=== PATIENT | female | born 1965 | race Two or more races ===

== ENCOUNTER 2020-08-19 13:41 | Observation (INO) | payer MEDICAID ==
[~2020-08-19] VITALS: Ht 157.5 cm; Wt 126.0 kg
[2020-08-19 14:06] LABS: BASO # 0.1 x10^3/uL (0.0-0.2); BASO % 1 % (0-3); EOS # 0.2 x10^3/uL (0.0-0.7); EOS % 2 % (0-3); HEMATOCRIT 35.6 % (36.0-47.0); HEMOGLOBIN 11.8 g/dL (12.0-15.5); LYMPH # 2.8 x10^3/uL (1.0-4.8); LYMPH % 27 % (24-48); MEAN CORPUSCULAR HEMOGLOBIN 26 pg (25-35); MEAN CORPUSCULAR HGB CONC 33 g/dL (31-37); MEAN CORPUSCULAR VOLUME 80 fL (79-100); MONO # 0.5 x10^3/uL (0.0-1.1); MONO % 5 % (0-9); NEUT # 6.6 x10^3/uL (1.8-7.7); NEUT % 65 % (31-73); PLATELET COUNT 217 x10^3/uL (140-400); RED BLOOD COUNT 4.47 x10^6/uL (3.50-5.40); RED CELL DISTRIBUTION WIDTH 18.6 % (11.5-14.5); WHITE BLOOD COUNT 10.2 x10^3/uL (4.0-11.0)
[2020-08-19 14:15] LABS: CALCIUM 9.5 mg/dL (8.5-10.1); CREATININE 0.9 mg/dL (0.6-1.0); POTASSIUM 3.6 mmol/L (3.5-5.1)
[2020-08-19 14:20] LABS: ALBUMIN 3.6 g/dL (3.4-5.0); MAGNESIUM 1.7 mg/dL (1.8-2.4); TOTAL BILIRUBIN 0.3 mg/dL (0.2-1.0); TOTAL PROTEIN 7.2 g/dL (6.4-8.2)
--- NOTE | 2020-08-19 14:23 | RAD ---
INDICATION: Reason: chest pain / Spl. Instructions: / History: COMPARISON: None. FINDINGS: Single view of chest obtained. Enlarged cardiomediastinal silhouette. Degenerative changes of the spine. No definite focal airspace consolidation or pulmonary edema. IMPRESSION: * No focal airspace consolidation or edema. Electronically signed by: Melvin Carrillo MD (08/19/2020 2:21 PM) [id number]
--- NOTE | 2020-08-19 14:28 | PHYS DOC ---
Past Medical History Past Medical History: Diabetes-Type II, Hypertension Past Surgical History: Additional Past Surgical Histo: UTERINE POLYPS Smoking Status: Never Smoker Alcohol Use: None General Adult EDM: Chief Complaint: CHEST PAIN HPI: HPI: Patient is a 55 year old female who was brought here by EMS from home due to substernal chest pain started on Sunday then went away, chest pain returned today. Patient went to have Covid test couple days ago and it came back negative yesterday. Patient has history of diabetic and hypertension. Patient had no history of coronary artery disease or blood clot disorder. Patient denies any recent travel or operation. Patient is not sure if she been exposed to anybody who tested positive for COVID-19. Patient said EMS gave her nitrog lycerin 2 doses and aspirin on route, patient feel much better upon arrival to ER. Review of Systems: Review of Systems: Constitutional: Denies fever or chills. [] Eyes: Denies change in visual acuity. [] HENT: positive for nasal congestion , no sore throat. [] Respiratory: Denies cough or shortness of breath. [] Cardiovascular: Positive for chest pain. GI: Denies abdominal pain, nausea, vomiting, bloody stools or diarrhea. [] : Denies dysuria. [] Musculoskeletal: Denies back pain or joint pain. [] Integument: Denies rash. [] Neurologic: Denies headache, focal weakness or sensory changes. [] Endocrine: Denies polyuria or polydipsia. [] Lymphatic: Denies swollen glands. [] Psychiatric: Denies depression or anxiety. [] Heart Score: HEART Score for Chest Pain: HEART Score for Chest Pain Response (Comments) Value History Moderately Suspicious 1 ECG Normal 0 Age >45 - < 65 1 Risk Factors >3 Risk Factors or Hx CAD 2 Troponin < Normal Limit 0 Total 4 Risk Factors: Risk Factors: DM, Current or recent (<one month) smoker, HTN, HLP, family history of CAD, obesity. Risk Scores: Score 0 - 3: 2.5% MACE over next 6 weeks - Discharge Home Score 4 - 6: 20.3% MACE over next 6 weeks - Admit for Clinical Observation Score 7 - 10: 72.7% MACE over next 6 weeks - Early Invasive Strategies Allergies: Allergies: Allergies Coded Allergies Type Severity Reaction Last Updated Verified No Known Drug Allergies 08/19/20 No Physical Exam: PE: Constitutional: Well developed, well nourished, no acute distress, non-toxic appearance. [] HENT: Normocephalic, atraumatic, bilateral external ears normal, oropharynx moist, no oral exudates, nose normal. [] Eyes: PERRLA, EOMI, conjunctiva normal, no discharge. [] Neck: Normal range of motion, no tenderness, supple, no stridor. [] Cardiovascular:Heart rate regular rhythm, no murmur [] Lungs & Thorax: Bilateral breath sounds clear to auscultation [] Abdomen: Bowel sounds normal, soft, no tenderness, no masses, no pulsatile masses. [] Skin: Warm, dry, no erythema, no rash. [] Back: No tenderness, no CVA tenderness. [] Extremities: No tenderness, no cyanosis, no clubbing, ROM intact, no edema. [] Neurologic: Alert and oriented X 3, normal motor function, normal sensory function, no focal deficits noted. [] Psychologic: Affect normal, judgement normal, mood normal. [] Current Patient Data: Labs: Laboratory Tests Test 08/19/20 13:55 White Blood Count 10.2 x10^3/uL (4.0-11.0) Red Blood Count 4.47 x10^6/uL (3.50-5.40) Hemoglobin 11.8 g/dL (12.0-15.5) L Hematocrit 35.6 % (36.0-47.0) L Mean Corpuscular Volume 80 fL (79-100) Mean Corpuscular Hemoglobin 26 pg (25-35) Mean Corpuscular Hemoglobin Concent 33 g/dL (31-37) Red Cell Distribution Width 18.6 % (11.5-14.5) H Platelet Count 217 x10^3/uL (140-400) Neutrophils (%) (Auto) 65 % (31-73) Lymphocytes (%) (Auto) 27 % (24-48) Monocytes (%) (Auto) 5 % (0-9) Eosinophils (%) (Auto) 2 % (0-3) Basophils (%) (Auto) 1 % (0-3) Neutrophils # (Auto) 6.6 x10^3/uL (1.8-7.7) Lymphocytes # (Auto) 2.8 x10^3/uL (1.0-4.8) Monocytes # (Auto) 0.5 x10^3/uL (0.0-1.1) Eosinophils # (Auto) 0.2 x10^3/uL (0.0-0.7) Basophils # (Auto) 0.1 x10^3/uL (0.0-0.2) Sodium Level 143 mmol/L (136-145) Potassium Level 3.6 mmol/L (3.5-5.1) Chloride Level 106 mmol/L (98-107) Carbon Dioxide Level 27 mmol/L (21-32) Anion Gap 10 (6-14) Blood Urea Nitrogen 12 mg/dL (7-20) Creatinine 0.9 mg/dL (0.6-1.0) Estimated GFR (Cockcroft-Gault) 65.0 BUN/Creatinine Ratio 13 (6-20) Glucose Level 97 mg/dL (70-99) Calcium Level 9.5 mg/dL (8.5-10.1) Magnesium Level 1.7 mg/dL (1.8-2.4) L Total Bilirubin 0.3 mg/dL (0.2-1.0) Aspartate Amino Transferase (AST) 11 U/L (15-37) L Alanine Aminotransferase (ALT) 23 U/L (14-59) Alkaline Phosphatase 105 U/L (46-116) Troponin I Quantitative < 0.017 ng/mL (0.000-0.055) EX-Eab-K-Type Natriuretic Peptide 22 pg/mL (0-124) Total Protein 7.2 g/dL (6.4-8.2) Albumin 3.6 g/dL (3.4-5.0) Albumin/Globulin Ratio 1.0 (1.0-1.7) Lipase 101 U/L (73-393) Laboratory Tests 08/19/20 13:55 Laboratory Tests 08/19/20 13:55 Vital Signs: Vital Signs Date Time Temp Pulse Resp B/P (MAP) Pulse Ox O2 Delivery O2 Flow Rate FiO2 08/19/20 13:44 97.9 71 18 139/63 (88) 99 Room Air 97.9 EKG: EKG: EKG was done at 1348, heart rate of 67 bpm, sinus rhythm, no ST segment elevation. Radiology/Procedures: Radiology/Procedures: [][facility] [address] [place] [address] IMAGING REPORT Signed PATIENT: SUYAPA TOMAS ACCOUNT: [id number] : 1965 LOCATION: ER AGE: 55 SEX: F EXAM STATUS: PRE ER ORD. PHYSICIAN: ALNCE MOBLEY DO REASON: chest pain PROCEDURE: PORTABLE CHEST 1V INDICATION: Reason: chest pain / Spl. Instructions: / History: COMPARISON: None. FINDINGS: Single view of chest obtained. Enlarged cardiomediastinal silhouette. Degenerative changes of the spine. No definite focal airspace consolidation or pulmonary edema. IMPRESSION: * No focal airspace consolidation or edema. Electronically signed by: Melvin Neff MD (08/19/2020 2:21 PM) [id number] DICTATED and SIGNED BY: MELVIN ENFF MD DATE: 08/19/20 [id number] Course & Med Decision Making: Course & Med Decision Making Pertinent Labs and Imaging studies reviewed. (See chart for details) Patient is a 55-year-old female who presented to ER for evaluation of substernal chest pain, EKG and lab work come back normal so far. Due to her risk factors patient will be admitted for observation. Dragon Disclaimer: Dragjuan Disclaimer: This electronic medical record was generated, in whole or in part, using a voice recognition dictation system. Departure Departure Impression: Primary Impression: Chest pain Disposition: ADMITTED INPT THIS HOSP Admitting Physician: NADEEN (Dr. Connell) Condition: STABLE LANCE MOBLEY DO Aug 19, 2020 14:28
[2020-08-19] MEDS ORDERED: MAGNESIUM SULFATE 2GM 50 ML IV ONE (16:00)
[2020-08-19] MEDS ORDERED: ZOLPIDEM 5 MG TABLET. PO PRN (16:00)
[2020-08-19] MEDS ORDERED: POTASSIUM BICARB 20 MEQ EFFERVESCENT TABLET. PO ONE (16:00)
[2020-08-19] MEDS ORDERED: MORPHINE SULFATE 2 MG/ML VIAL. IV PRN (16:00)
[2020-08-19] MEDS ORDERED: ENOXAPARIN 40 MG/0.4 ML SYRINGE. SQ SCH (16:00)
[2020-08-19] MEDS ORDERED: ONDANSETRON PF 4 MG/2 ML VIAL. IVP PRN (16:00)
--- NOTE | 2020-08-19 16:01 | PDOC1 ---
History and Physical Date of Admission Date of Admission DATE: 08/19/20 TIME: 15:52 Identification/Chief Complaint Chief Complaint Chest pain Source Source: Patient History of Present Illness History of Present Illness Ms Mathew is a 55 year old female w/ PMHx HTN, DM2 who was brought here by EMS from home due to substernal chest pain that did not radiate. Was sharp, associated with shortness of breath, lasted more than 15 minutes. 02/05. EMS gave her nitroglycerin 2 doses and aspirin on route, patient feel much better upon arrival to ER. Initially this pain started on Sunday then went away with associated SOB, chest pain returned today. Patient went to have Covid test on 08/16/20 and received negative results 08/18/20. Patient had no history of coronary artery disease or blood clot disorder. Patient denies any recent travel or operation. Patient is not sure if she been exposed to anybody who tested positive for COVID-19. 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 She has never smoked. EKG was done at 1348, heart rate of 67 bpm, sinus rhythm, no ST segment elevation. Chest radiograph with no acute abnormalities. Labs with WBC 10.2, Hb 11.8, platelets 207, NA 143, K3.6, BUN 12, CR 0.9, glucose 97, magnesium 1.7, troponin 0 Admitted for further overnight observation. Past Medical History Cardiovascular: HTN, Hyperlipidemia Endocrine: Diabetes Past Surgical History Past Surgical History: Hysterectomy Family History Family History: High Cholestrol, Hypertension Social History Smoke: No ALCOHOL: none Drugs: None Current Problem List Problem List Problems Medical Problems: (1) Chest pain Status: Acute Allergies Allergies: Coded Allergies: No Known Drug Allergies (Unverified , 08/19/20) ROS General: YES: Fatigue, Malaise; No: Chills, Night Sweats, Appetite, Other PSYCHOLOGICAL ROS: No: Anxiety, Behavioral Disorder, Concentration difficultie, Decreased libido, Depression, Disorientation, Hallucinations, Hostility, Irritablity, Memory difficulties, Mood Swings, Obsessive thoughts, Physical abuse, Sexual abuse, Sleep disturbances, Suicidal ideation, Other Eyes: No Blurry vision, No Decreased vision, No Double vision, No Dry eyes, No Excessive tearing, No Eye Pain, No Itchy Eyes, No Loss of vision, No P hotophobia, No Scotomata, No Uses contacts, No Uses glasses, No Other HEENT: No: Heacaches, Visual Changes, Hearing change, Nasal congestion, Nasal discharge, Oral lesions, Sinus pain, Sore Throat, Epistaxis, Sneezing, Snoring, Tinnitus, Vertigo, Vocal changes, Other ALLERGY AND IMMUNOLOGY: No: Hives, Insect Bite Sensitivity, Itchy/Watery Eyes, Nasal Congestion, Post Nasal Drip, Seasonal Allergies, Other Hematological and Lymphatic: No: Bleeding Problems, Blood Clots, Blood Transfusions, Brusing, Night Sweats, Pallor, Swollen Lymph Nodes, Other ENDOCRINE: No: Breast Changes, Galactorrhea, Hair Pattern Changes, Hot Flashes, Malaise/lethargy, Mood Swings, Palpitations, Polydipsia/polyuria, Skin Changes, Temperature Intolerance, Unexpected Weight Changes, Other Breast: No New/Changing Breast Lumps, No Nipple changes, No Nipple discharge, No Other Respiratory: No: Cough, Hemoptysis, Orthopnea, Pleuritic Pain, Shortness of breath, SOB with excertion, Sputum Changes, Stridor, Tachypnea, Wheezing, Other Cardiovascular: No Chest Pain, No Palpitations, No Orthopnea, No Paroxysmal Noc. Dyspnea, No Edema, No Lt Headedness, No Other Gastrointestinal: No Nausea, No Vomiting, No Abdominal Pain, No Diarrhea, No Constipation, No Melena, No Hematochezia, No Other Genitourinary: No Dysuria, No Frequency, No Incontinence, No Hematuria, No Retention, No Discharge, No Urgency, No Pain, No Flank Pain, No Other, No , No , No , No , No , No , No Musculoskeletal: No Gait Disturbance, No Joint Pain, No Joint Stiffness, No Joint Swelling, No Muscle Pain, No Muscular Weakness, No Pain In:, No Swelling In:, No Other Neurological: No Behavorial Changes, No Bowel/Bladder ControlChng, No Confusion, No Dizziness, No Gait Disturbance, No Headaches, No Impaired Coord/balance, No Memory Loss, No Numbness/Tingling, No Seizures, No Speech Problems, No Tremors, No Visual Changes, No Weakness, No Other Skin: No Dry Skin, No Eczema, No Hair Changes, No Lumps, No Mole Changes, No Mottling, No Nail Changes, No Pruritus, No Rash, No Skin Lesion Changes, No Other, No Acne Physical Exam General: Alert, Oriented X3, Cooperative, No acute distress HEENT: Atraumatic, PERRLA, EOMI, Mucous membr. moist/pink Lungs: Clear to auscultation, Normal air movement Heart: S1S2, RRR, no thrills, no rubs, no gallops, no murmurs Abdomen: Normal bowel sounds, Soft, No tenderness, No hepatosplenomegaly, No masses Rectal Exam: not examined Extremities: No clubbing, No cyanosis, No edema, Normal pulses, No tenderness/swelling Skin: No rashes, No breakdown, No significant lesion Neuro: Normal gait, Normal speech, Strength at 5/5 X4 ext, Normal tone, Sensation intact, Cranial nerves 3-12 NL, Reflexes 2+ Psych/Mental Status: Mental status NL, Mood NL Vitals Vitals Vital Signs Date Time Temp Pulse Resp B/P (MAP) Pulse Ox O2 Delivery O2 Flow Rate FiO2 08/19/20 14:47 72 18 128/73 (91) 98 Room Air 08/19/20 13:44 97.9 97.9 Labs Labs Laboratory Tests Test 08/19/20 13:55 White Blood Count 10.2 x10^3/uL (4.0-11.0) Red Blood Count 4.47 x10^6/uL (3.50-5.40) Hemoglobin 11.8 g/dL (12.0-15.5) Hematocrit 35.6 % (36.0-47.0) Mean Corpuscular Volume 80 fL (79-100) Mean Corpuscular Hemoglobin 26 pg (25-35) Mean Corpuscular Hemoglobin Concent 33 g/dL (31-37) Red Cell Distribution Width 18.6 % (11.5-14.5) Platelet Count 217 x10^3/uL (140-400) Neutrophils (%) (Auto) 65 % (31-73) Lymphocytes (%) (Auto) 27 % (24-48) Monocytes (%) (Auto) 5 % (0-9) Eosinophils (%) (Auto) 2 % (0-3) Basophils (%) (Auto) 1 % (0-3) Neutrophils # (Auto) 6.6 x10^3/uL (1.8-7.7) Lymphocytes # (Auto) 2.8 x10^3/uL (1.0-4.8) Monocytes # (Auto) 0.5 x10^3/uL (0.0-1.1) Eosinophils # (Auto) 0.2 x10^3/uL (0.0-0.7) Basophils # (Auto) 0.1 x10^3/uL (0.0-0.2) Sodium Level 143 mmol/L (136-145) Potassium Level 3.6 mmol/L (3.5-5.1) Chloride Level 106 mmol/L (98-107) Carbon Dioxide Level 27 mmol/L (21-32) Anion Gap 10 (6-14) Blood Urea Nitrogen 12 mg/dL (7-20) Creatinine 0.9 mg/dL (0.6-1.0) Estimated GFR (Cockcroft-Gault) 65.0 BUN/Creatinine Ratio 13 (6-20) Glucose Level 97 mg/dL (70-99) Calcium Level 9.5 mg/dL (8.5-10.1) Magnesium Level 1.7 mg/dL (1.8-2.4) Total Bilirubin 0.3 mg/dL (0.2-1.0) Aspartate Amino Transf (AST/SGOT) 11 U/L (15-37) Alanine Aminotransferase (ALT/SGPT) 23 U/L (14-59) Alkaline Phosphatase 105 U/L (46-116) Troponin I Quantitative < 0.017 ng/mL (0.000-0.055) QR-Qqs-D-Type Natriuretic Peptide 22 pg/mL (0-124) Total Protein 7.2 g/dL (6.4-8.2) Albumin 3.6 g/dL (3.4-5.0) Albumin/Globulin Ratio 1.0 (1.0-1.7) Lipase 101 U/L (73-393) Laboratory Tests Test 08/19/20 13:55 White Blood Count 10.2 x10^3/uL (4.0-11.0) Red Blood Count 4.47 x10^6/uL (3.50-5.40) Hemoglobin 11.8 g/dL (12.0-15.5) Hematocrit 35.6 % (36.0-47.0) Mean Corpuscular Volume 80 fL (79-100) Mean Corpuscular Hemoglobin 26 pg (25-35) Mean Corpuscular Hemoglobin Concent 33 g/dL (31-37) Red Cell Distribution Width 18.6 % (11.5-14.5) Platelet Count 217 x10^3/uL (140-400) Neutrophils (%) (Auto) 65 % (31-73) Lymphocytes (%) (Auto) 27 % (24-48) Monocytes (%) (Auto) 5 % (0-9) Eosinophils (%) (Auto) 2 % (0-3) Basophils (%) (Auto) 1 % (0-3) Neutrophils # (Auto) 6.6 x10^3/uL (1.8-7.7) Lymphocytes # (Auto) 2.8 x10^3/uL (1.0-4.8) Monocytes # (Auto) 0.5 x10^3/uL (0.0-1.1) Eosinophils # (Auto) 0.2 x10^3/uL (0.0-0.7) Basophils # (Auto) 0.1 x10^3/uL (0.0-0.2) Sodium Level 143 mmol/L (136-145) Potassium Level 3.6 mmol/L (3.5-5.1) Chloride Level 106 mmol/L (98-107) Carbon Dioxide Level 27 mmol/L (21-32) Anion Gap 10 (6-14) Blood Urea Nitrogen 12 mg/dL (7-20) Creatinine 0.9 mg/dL (0.6-1.0) Estimated GFR (Cockcroft-Gault) 65.0 BUN/Creatinine Ratio 13 (6-20) Glucose Level 97 mg/dL (70-99) Calcium Level 9.5 mg/dL (8.5-10.1) Magnesium Level 1.7 mg/dL (1.8-2.4) Total Bilirubin 0.3 mg/dL (0.2-1.0) Aspartate Amino Transf (AST/SGOT) 11 U/L (15-37) Alanine Aminotransferase (ALT/SGPT) 23 U/L (14-59) Alkaline Phosphatase 105 U/L (46-116) Troponin I Quantitative < 0.017 ng/mL (0.000-0.055) UA-Bvf-U-Type Natriuretic Peptide 22 pg/mL (0-124) Total Protein 7.2 g/dL (6.4-8.2) Albumin 3.6 g/dL (3.4-5.0) Albumin/Globulin Ratio 1.0 (1.0-1.7) Lipase 101 U/L (73-393) Images Images Chest radiograph: Single view of chest obtained. Enlarged cardiomediastinal silhouette. Degenerative changes of the spine. No definite focal airspace consolidation or pulmonary edema. IMPRESSION: * No focal airspace consolidation or edema. VTE Prophylaxis Ordered VTE Prophylaxis Devices: No VTE Pharmacological Prophylaxi: Yes Assessment/Plan Assessment/Plan A/P: Chest pain -likely GERD. Shortness of breath likely related to LPR D. Troponin EKG and chest x-ray negative. Will trend troponins overnight maintain telemetry given her increased risk of having pain relieved with nitroglycerin. Could be unstable angina. DM2 - sliding scale Morbid obesity - counseled on diet, exercise, weight loss. HTN - cont home meds Hypokalemia and hypomagnesmia - will replace FEN - Cardiac Justifications for Admission Other Justification STEPHANIE MONTANEZ MD Aug 19, 2020 16:01
[2020-08-19 16:38] LABS: BILIRUBIN,URINE NEGATIVE (NEG); CLARITY,URINE CLEAR; COLOR,URINE YELLOW; NITRITE,URINE NEGATIVE (NEG); PROTEIN,URINE NEGATIVE (NEG-TRACE); UROBILINOGEN,URINE 0.2 mg/dL (0.2 mg/dL)
[2020-08-19 16:45] VITALS: BP 160/72
[2020-08-19 16:57] LABS: BACTERIA,URINE MANY /HPF (0-FEW)
[2020-08-19 16:58] LABS: RBC,URINE 0 /HPF (0-2); WBC,URINE OCC /HPF (0-4)
[2020-08-19] MEDS ORDERED: DEXTROSE 50% 25 GM / 50ML DISP.SYRIN. IV PRN (17:15)
[2020-08-19] MEDS ORDERED: BUTALB/APAP/CAFEIN 50/325/40MG TABLET. PO PRN (17:15)
[2020-08-19] MEDS ORDERED: METF500T16 PO (18:52)
[2020-08-19] MEDS ORDERED: FAMO20TA5 PO (18:52)
[2020-08-19] MEDS ORDERED: LOPE2TAB27 PO ×2 (18:52)
[2020-08-19] MEDS ORDERED: ATOR20TA58 PO (18:52)
[2020-08-19] MEDS ORDERED: ASPI-630 PO (18:52)
[2020-08-19] MEDS ORDERED: MIRA50TA PO (18:52)
[2020-08-19] MEDS ORDERED: LISI10TA2 PO (18:52)
[2020-08-19] MEDS ORDERED: AMLO-187 PO (18:52)
[2020-08-19] MEDS ORDERED: TRAZ-118 PO (18:52)
[2020-08-19] MEDS ORDERED: DICL75TA PO (18:52)
[2020-08-19] MEDS ORDERED: NITROGLYCERIN SUBLINGUAL 0.4 MG BOTTLE OF 25. SL PRN (19:00)
[2020-08-19] MEDS: ACETAMINOPHEN 325 MG TABLET. PO PRN (19:11)
[2020-08-19 19:43] VITALS: BP 162/89
[2020-08-19] MEDS ORDERED: traZODone 50 MG TABLET. PO SCH (21:00)
[2020-08-19] MEDS: SENNOSIDES/DOCUSATE 8.6/50MG TABLET. PO SCH (21:50)
[2020-08-19] MEDS: FAMOTIDINE 20 MG/2 ML VIAL IVP SCH (21:51)
[2020-08-19 22:35] VITALS: BP 128/66
[2020-08-20 02:07] VITALS: BP 135/109
[2020-08-20 04:37] LABS: BASO # 0.1 x10^3/uL (0.0-0.2); BASO % 1 % (0-3); EOS # 0.3 x10^3/uL (0.0-0.7); EOS % 3 % (0-3); HEMATOCRIT 34.8 % (36.0-47.0); HEMOGLOBIN 11.2 g/dL (12.0-15.5); LYMPH # 2.6 x10^3/uL (1.0-4.8); LYMPH % 27 % (24-48); MEAN CORPUSCULAR HEMOGLOBIN 26 pg (25-35); MEAN CORPUSCULAR HGB CONC 32 g/dL (31-37); MEAN CORPUSCULAR VOLUME 80 fL (79-100); MONO # 0.5 x10^3/uL (0.0-1.1); MONO % 5 % (0-9); NEUT # 6.2 x10^3/uL (1.8-7.7); NEUT % 64 % (31-73); PLATELET COUNT 225 x10^3/uL (140-400); RED BLOOD COUNT 4.34 x10^6/uL (3.50-5.40); RED CELL DISTRIBUTION WIDTH 18.5 % (11.5-14.5); WHITE BLOOD COUNT 9.6 x10^3/uL (4.0-11.0)
[2020-08-20 05:07] LABS: CREATININE 0.9 mg/dL (0.6-1.0); POTASSIUM 4.1 mmol/L (3.5-5.1)
[2020-08-20 07:00] VITALS: BP 122/76
--- NOTE | 2020-08-20 07:44 | PDOC ---
[employer] PROGRESS NOTE Date of Service DOS: DATE: 08/20/20 TIME: 07:43 Chief Complaint Chief Complaint A/P: Chest pain -likely GERD. Shortness of breath likely related to LPR D. Troponin EKG and chest x-ray negative. Will trend troponins overnight maintain telemetry given her increased risk of having pain relieved with nitroglycerin. Could be unstable angina. DM2 - sliding scale Morbid obesity - counseled on diet, exercise, weight loss. HTN - cont home meds Hypokalemia and hypomagnesmia - will replace FEN - Cardiac History of Present Illness History of Present Illness Ms Mathew is a 55 year old female w/ PMHx HTN, DM2 who was brought here by EMS from home due to substernal chest pain that did not radiate. Was sharp, associated with shortness of breath, lasted more than 15 minutes. 02/05. EMS gave her nitroglycerin 2 doses and aspirin on route, patient feel much better upon arrival to ER. Initially this pain started on Sunday then went away with associated SOB, chest pain returned today. Patient went to have Covid test on 08/16/20 and received negative results 08/18/20. Patient had no history of coronary artery disease or blood clot disorder. Pat holden denies any recent travel or operation. Patient is not sure if she been exposed to anybody who tested positive for COVID-19. 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 She has never smoked. EKG was done at 1348, heart rate of 67 bpm, sinus rhythm, no ST segment elevation. Chest radiograph with no acute abnormalities. Labs with WBC 10.2, Hb 11.8, platelets 207, NA 143, K3.6, BUN 12, CR 0.9, glucose 97, magnesium 1.7, troponin 0 Admitted for further overnight observation. Chest pain resolved. Telemetry reviewed no events overnight. Labs stable no troponin elevation. Plan for echocardiogram and discharge home today with outpatient stress testing with cardiology follow-up. She has plans for gastric bypass in the next 90 days and has follow-up at [facility] for this and will follow up with GI. Vitals/I&O Vitals/I&O: Vital Signs Date Time Temp Pulse Resp B/P (MAP) Pulse Ox O2 Delivery O2 Flow Rate FiO2 08/20/20 02:07 98.0 75 18 135/109 (118) 96 Room Air 98.0 I & O 08/19/20 08/19/20 08/20/20 15:00 23:00 07:00 Intake Total 830 ml 600 ml Balance 830 ml 600 ml Physical Exam General: Alert, Oriented X3, Cooperative, No acute distress Abdomen: Normal bowel sounds, Soft, No tenderness, No hepatosplenomegaly, No masses Extremities: No clubbing, No cyanosis, No edema, Normal pulses, No tenderness/swelling Skin: No rashes, No breakdown, No significant lesion Labs Labs: Laboratory Tests Test 08/19/20 13:55 08/19/20 16:20 08/19/20 16:26 08/19/20 19:55 White Blood Count 10.2 x10^3/uL (4.0-11.0) Red Blood Count 4.47 x10^6/uL (3.50-5.40) Hemoglobin 11.8 g/dL (12.0-15.5) Hematocrit 35.6 % (36.0-47.0) Mean Corpuscular Volume 80 fL (79-100) Mean Corpuscular Hemoglobin 26 pg (25-35) Mean Corpuscular Hemoglobin Concent 33 g/dL (31-37) Red Cell Distribution Width 18.6 % (11.5-14.5) Platelet Count 217 x10^3/uL (140-400) Neutrophils (%) (Auto) 65 % (31-73) Lymphocytes (%) (Auto) 27 % (24-48) Monocytes (%) (Auto) 5 % (0-9) Eosinophils (%) (Auto) 2 % (0-3) Basophils (%) (Auto) 1 % (0-3) Neutrophils # (Auto) 6.6 x10^3/uL (1.8-7.7) Lymphocytes # (Auto) 2.8 x10^3/uL (1.0-4.8) Monocytes # (Auto) 0.5 x10^3/uL (0.0-1.1) Eosinophils # (Auto) 0.2 x10^3/uL (0.0-0.7) Basophils # (Auto) 0.1 x10^3/uL (0.0-0.2) Sodium Level 143 mmol/L (136-145) Potassium Level 3.6 mmol/L (3.5-5.1) Chloride Level 106 mmol/L (98-107) Carbon Dioxide Level 27 mmol/L (21-32) Anion Gap 10 (6-14) Blood Urea Nitrogen 12 mg/dL (7-20) Creatinine 0.9 mg/dL (0.6-1.0) Estimated GFR (Cockcroft-Gault) 65.0 BUN/Creatinine Ratio 13 (6-20) Glucose Level 97 mg/dL (70-99) Calcium Level 9.5 mg/dL (8.5-10.1) Magnesium Level 1.7 mg/dL (1.8-2.4) Total Bilirubin 0.3 mg/dL (0.2-1.0) Aspartate Amino Transf (AST/SGOT) 11 U/L (15-37) Alanine Aminotransferase (ALT/SGPT) 23 U/L (14-59) Alkaline Phosphatase 105 U/L (46-116) Troponin I Quantitative < 0.017 ng/mL (0.000-0.055) < 0.017 ng/mL (0.000-0.055) < 0.017 ng/mL (0.000-0.055) NX-Qcg-F-Type Natriuretic Peptide 22 pg/mL (0-124) Total Protein 7.2 g/dL (6.4-8.2) Albumin 3.6 g/dL (3.4-5.0) Albumin/Globulin Ratio 1.0 (1.0-1.7) Lipase 101 U/L (73-393) Thyroid Stimulating Hormone (TSH) 1.616 uIU/mL (0.358-3.74) Urine Collection Type Unknown Urine Color Yellow Urine Clarity Clear Urine pH 6.0 (<5.0-8.0) Urine Specific [place] 1.020 (1.000-1.030) Urine Protein Negative mg/dL (NEG-TRACE) Urine Glucose (UA) Negative mg/dL (NEG) Urine Ketones (Stick) Negative mg/dL (NEG) Urine Blood Negative (NEG) Urine Nitrite Negative (NEG) Urine Bilirubin Negative (NEG) Urine Urobilinogen Dipstick 0.2 mg/dL (0.2 mg/dL) Urine Leukocyte Esterase Negative (NEG) Urine RBC 0 /HPF (0-2) Urine WBC Occ /HPF (0-4) Urine Squamous Epithelial Cells Many /LPF Urine Bacteria Many /HPF (0-FEW) Urine Mucus Mod /LPF Test 08/19/20 21:22 08/20/20 04:16 Glucose (Fingerstick) 113 mg/dL (70-99) White Blood Count 9.6 x10^3/uL (4.0-11.0) Red Blood Count 4.34 x10^6/uL (3.50-5.40) Hemoglobin 11.2 g/dL (12.0-15.5) Hematocrit 34.8 % (36.0-47.0) Mean Corpuscular Volume 80 fL (79-100) Mean Corpuscular Hemoglobin 26 pg (25-35) Mean Corpuscular Hemoglobin Concent 32 g/dL (31-37) Red Cell Distribution Width 18.5 % (11.5-14.5) Platelet Count 225 x10^3/uL (140-400) Neutrophils (%) (Auto) 64 % (31-73) Lymphocytes (%) (Auto) 27 % (24-48) Monocytes (%) (Auto) 5 % (0-9) Eosinophils (%) (Auto) 3 % (0-3) Basophils (%) (Auto) 1 % (0-3) Neutrophils # (Auto) 6.2 x10^3/uL (1.8-7.7) Lymphocytes # (Auto) 2.6 x10^3/uL (1.0-4.8) Monocytes # (Auto) 0.5 x10^3/uL (0.0-1.1) Eosinophils # (Auto) 0.3 x10^3/uL (0.0-0.7) Basophils # (Auto) 0.1 x10^3/uL (0.0-0.2) Sodium Level 145 mmol/L (136-145) Potassium Level 4.1 mmol/L (3.5-5.1) Chloride Level 108 mmol/L (98-107) Carbon Dioxide Level 27 mmol/L (21-32) Anion Gap 10 (6-14) Blood Urea Nitrogen 12 mg/dL (7-20) Creatinine 0.9 mg/dL (0.6-1.0) Estimated GFR (Cockcroft-Gault) 65.0 Glucose Level 98 mg/dL (70-99) Calcium Level 9.0 mg/dL (8.5-10.1) Troponin I Quantitative < 0.017 ng/mL (0.000-0.055) Assessment and Plan Assessmemt and Plan Problems Medical Problems: (1) Chest pain Status: Acute Comment Review of Relevant I have reviewed the following items flaquito (where applicable) has been applied. Medications: Current Medications Medications (Trade) Dose Ordered Sig/Jono Route PRN Reason Start Time Stop Time Status Last Admin Dose Admin Zolpidem Tartrate (Ambien) 5 mg PRN QHS PRN PO INSOMNIA, MAY REPEAT IN 1HR 08/19/20 16:00 08/19/20 21:50 Acetaminophen (Tylenol) 650 mg PRN Q6HRS PRN PO Headaches, Temp > 101.5F 08/19/20 16:00 08/19/20 19:11 Senna/Docusate Sodium (Senna Plus) 1 tab BID PO 08/19/20 21:00 08/19/20 21:50 Magnesium Sulfate 50 ml @ 25 mls/hr 1X ONCE IV 08/19/20 16:00 08/19/20 17:59 DC 08/19/20 19:12 Potassium Bicarbonate (Potassium Effervescent Tablet) 40 meq 1X ONCE PO 08/19/20 16:00 08/19/20 16:02 DC 08/19/20 19:11 Enoxaparin Sodium (Lovenox 60mg Syringe) 60 mg Q12HR SQ 08/19/20 21:00 08/19/20 21:51 Famotidine (Pepcid Vial) 20 mg BID IVP 08/19/20 21:00 08/19/20 21:51 Trazodone HCl (Desyrel) 50 mg QHS PO 08/19/20 21:00 08/19/20 21:50 Justifications for Admission Chest Pain Indications Is patient at high risk?: Yes Justification for admission: Patient is high risk based on hemodynamic instability, CHF, abnormal EKG/ECG/cardiac biomarkers/physical exam findings in context of chest pain persisting despite parenteral analgesics & optimal anti-anginal therapy. Other Justification STEPHANIE MONTANEZ MD Aug 20, 2020 07:44
[2020-08-20] MEDS: INSULIN LISPRO 300 UNITS/3 ML VIAL. SQ SCH ×2 (08:00→12:00)
[2020-08-20] MEDS: SENNOSIDES/DOCUSATE 8.6/50MG TABLET. PO SCH (09:00)
[2020-08-20] MEDS ORDERED: amLODIPine BESYLATE 10 MG TABLET PO SCH (09:00)
[2020-08-20] MEDS ORDERED: NON FORMULARY ITEM (Mirabegron (Myrbetriq) 50 MG) PO SCH (09:00)
[2020-08-20] MEDS ORDERED: ASPIRIN CHEWABLE 81 MG TABLET. PO SCH (09:00)
[2020-08-20] MEDS ORDERED: LISINOPRIL 10 MG TABLET PO SCH (09:00)
[2020-08-20] MEDS: ACETAMINOPHEN 325 MG TABLET. PO PRN (09:20)
[2020-08-20] MEDS: FAMOTIDINE 20 MG/2 ML VIAL IVP SCH (09:21)
--- NOTE | 2020-08-20 10:54 | PDOC2 ---
JOAQUIN GILL DIRECTOR OF RELIGIOUS ACTIVITIES 08/20/20 1054: CARDIAC CONSULT DATE OF CONSULT Date of Consult DATE: 08/20/20 TIME: 10:37 REASON FOR CONSULT Reason for Consult: Chest pain REFERRING PHYSICIAN Referring Physician: [place] SOURCE Source: Chart review, Patient HISTORY OF PRESENT ILLNESS HISTORY OF PRESENT ILLNESS This is a pleasant 55 yo female admitted for complains of chest pain. Reports that this started Sunday sharp in consistency and also reproducible with deep breath. No SOA per se but could not breath deep sometimes due to the pain. No palpitations. Denies any falls or injury. No diaphoresis, intractable coughin g,nausea or vomiting. Denies any fevers or chills. She is basically sedentary due to her lower back issue. No prior VTE, CAD or arrhythmias. PAST MEDICAL HISTORY Cardiovascular: HTN, Hyperlipidemia Pulmonary: Other (BRYANNA) CENTRAL NERVOUS SYSTEM: Other (No pertinent history) GI: GERD Heme/Onc: No pertinent hx Hepatobiliary: No pertinent hx Psych: No pertinent hx Musculoskeletal: low back pain, Osteoarthritis Rheumatologic: No pertinent hx Infectious disease: No pertinent hx ENT: No pertinent hx Renal/: No pertinent hx Endocrine: Diabetes Dermatology: No pertinent hx PAST SURGICAL HISTORY Past Surgical History: , Other (uterine polypectomy) FAMILY HISTORY Family History: Diabetes SOCIAL HISTORY Smoke: No ALCOHOL: none Drugs: None Lives: Alone CURRENT MEDICATIONS CURRENT MEDICATIONS Current Medications Medications (Trade) Dose Ordered Sig/Jono Route PRN Reason Start Time Stop Time Status Last Admin Dose Admin Zolpidem Tartrate (Ambien) 5 mg PRN QHS PRN PO INSOMNIA, MAY REPEAT IN 1HR 08/19/20 16:00 08/19/20 21:50 Acetaminophen (Tylenol) 650 mg PRN Q6HRS PRN PO Headaches, Temp > 101.5F 08/19/20 16:00 08/20/20 09:20 Senna/Docusate Sodium (Senna Plus) 1 tab BID PO 08/19/20 21:00 08/19/20 21:50 Magnesium Sulfate 50 ml @ 25 mls/hr 1X ONCE IV 08/19/20 16:00 08/19/20 17:59 DC 08/19/20 19:12 Potassium Bicarbonate (Potassium Effervescent Tablet) 40 meq 1X ONCE PO 08/19/20 16:00 08/19/20 16:02 DC 08/19/20 19:11 Enoxaparin Sodium (Lovenox 60mg Syringe) 60 mg Q12HR SQ 08/19/20 21:00 08/19/20 21:51 Famotidine (Pepcid Vial) 20 mg BID IVP 08/19/20 21:00 08/20/20 09:21 Trazodone HCl (Desyrel) 50 mg QHS PO 08/19/20 21:00 08/19/20 21:50 ALLERGIES ALLERGIES: Coded Allergies: No Known Drug Allergies (Unverified , 08/19/20) ROS Review of System 14 point ROS evlauated with pertinent positives noted per HPI PHYSICAL EXAM General: Alert, Oriented X3, Cooperative, No acute distress HEENT: Atraumatic, Mucous membr. moist/pink Lungs: Clear to auscultation, Normal air movement Heart: Regular rate (SR no ectopies), Normal S1, Normal S2, No murmurs Abdomen: Soft, No tenderness, Other (obese) Extremities: No cyanosis, No edema Skin: No breakdown, No significant lesion Neuro: Normal speech, Sensation intact Psych/Mental Status: Mental status NL, Mood NL MUSCULOSKELETAL: Osteoarthritic changes both hands VITALS/I&O VITALS/I&O: Vital Signs Date Time Temp Pulse Resp B/P (MAP) Pulse Ox O2 Delivery O2 Flow Rate FiO2 08/20/20 07:00 97.9 59 20 122/76 (91) 98 Room Air 97.9 I & O 08/19/20 08/19/20 08/20/20 15:00 23:00 07:00 Intake Total 830 ml 600 ml Balance 830 ml 600 ml LABS Lab: Laboratory Tests Test 08/19/20 13:55 08/19/20 16:20 08/19/20 16:26 08/19/20 19:55 White Blood Count 10.2 x10^3/uL (4.0-11.0) Red Blood Count 4.47 x10^6/uL (3.50-5.40) Hemoglobin 11.8 g/dL (12.0-15.5) L Hematocrit 35.6 % (36.0-47.0) L Mean Corpuscular Volume 80 fL (79-100) Mean Corpuscular Hemoglobin 26 pg (25-35) Mean Corpuscular Hemoglobin Concent 33 g/dL (31-37) Red Cell Distribution Width 18.6 % (11.5-14.5) H Platelet Count 217 x10^3/uL (140-400) Neutrophils (%) (Auto) 65 % (31-73) Lymphocytes (%) (Auto) 27 % (24-48) Monocytes (%) (Auto) 5 % (0-9) Eosinophils (%) (Auto) 2 % (0-3) Basophils (%) (Auto) 1 % (0-3) Neutrophils # (Auto) 6.6 x10^3/uL (1.8-7.7) Lymphocytes # (Auto) 2.8 x10^3/uL (1.0-4.8) Monocytes # (Auto) 0.5 x10^3/uL (0.0-1.1) Eosinophils # (Auto) 0.2 x10^3/uL (0.0-0.7) Basophils # (Auto) 0.1 x10^3/uL (0.0-0.2) Sodium Level 143 mmol/L (136-145) Potassium Level 3.6 mmol/L (3.5-5.1) Chloride Level 106 mmol/L (98-107) Carbon Dioxide Level 27 mmol/L (21-32) Anion Gap 10 (6-14) Blood Urea Nitrogen 12 mg/dL (7-20) Creatinine 0.9 mg/dL (0.6-1.0) Estimated GFR (Cockcroft-Gault) 65.0 BUN/Creatinine Ratio 13 (6-20) Glucose Level 97 mg/dL (70-99) Calcium Level 9.5 mg/dL (8.5-10.1) Magnesium Level 1.7 mg/dL (1.8-2.4) L Total Bilirubin 0.3 mg/dL (0.2-1.0) Aspartate Amino Transferase (AST) 11 U/L (15-37) L Alanine Aminotransferase (ALT) 23 U/L (14-59) Alkaline Phosphatase 105 U/L (46-116) Troponin I Quantitative < 0.017 ng/mL (0.000-0.055) < 0.017 ng/mL (0.000-0.055) < 0.017 ng/mL (0.000-0.055) ES-Nps-O-Type Natriuretic Peptide 22 pg/mL (0-124) Total Protein 7.2 g/dL (6.4-8.2) Albumin 3.6 g/dL (3.4-5.0) Albumin/Globulin Ratio 1.0 (1.0-1.7) Lipase 101 U/L (73-393) Thyroid Stimulating Hormone (TSH) 1.616 uIU/mL (0.358-3.74) Urine Collection Type Unknown Urine Color Yellow Urine Clarity Clear Urine pH 6.0 (<5.0-8.0) Urine Specific [place] 1.020 (1.000-1.030) Urine Protein Negative mg/dL (NEG-TRACE) Urine Glucose (UA) Negative mg/dL (NEG) Urine Ketones (Stick) Negative mg/dL (NEG) Urine Blood Negative (NEG) Urine Nitrite Negative (NEG) Urine Bilirubin Negative (NEG) Urine Urobilinogen Dipstick 0.2 mg/dL (0.2 mg/dL) Urine Leukocyte Esterase Negative (NEG) Urine RBC 0 /HPF (0-2) Urine WBC Occ /HPF (0-4) Urine Squamous Epithelial Cells Many /LPF Urine Bacteria Many /HPF (0-FEW) Urine Mucus Mod /LPF Test 08/19/20 21:22 08/20/20 04:16 08/20/20 07:41 Glucose (Fingerstick) 113 mg/dL (70-99) H 108 mg/dL (70-99) H White Blood Count 9.6 x10^3/uL (4.0-11.0) Red Blood Count 4.34 x10^6/uL (3.50-5.40) Hemoglobin 11.2 g/dL (12.0-15.5) L Hematocrit 34.8 % (36.0-47.0) L Mean Corpuscular Volume 80 fL (79-100) Mean Corpuscular Hemoglobin 26 pg (25-35) Mean Corpuscular Hemoglobin Concent 32 g/dL (31-37) Red Cell Distribution Width 18.5 % (11.5-14.5) H Platelet Count 225 x10^3/uL (140-400) Neutrophils (%) (Auto) 64 % (31-73) Lymphocytes (%) (Auto) 27 % (24-48) Monocytes (%) (Auto) 5 % (0-9) Eosinophils (%) (Auto) 3 % (0-3) Basophils (%) (Auto) 1 % (0-3) Neutrophils # (Auto) 6.2 x10^3/uL (1.8-7.7) Lymphocytes # (Auto) 2.6 x10^3/uL (1.0-4.8) Monocytes # (Auto) 0.5 x10^3/uL (0.0-1.1) Eosinophils # (Auto) 0.3 x10^3/uL (0.0-0.7) Basophils # (Auto) 0.1 x10^3/uL (0.0-0.2) Sodium Level 145 mmol/L (136-145) Potassium Level 4.1 mmol/L (3.5-5.1) Chloride Level 108 mmol/L (98-107) H Carbon Dioxide Level 27 mmol/L (21-32) Anion Gap 10 (6-14) Blood Urea Nitrogen 12 mg/dL (7-20) Creatinine 0.9 mg/dL (0.6-1.0) Estimated GFR (Cockcroft-Gault) 65.0 Glucose Level 98 mg/dL (70-99) Calcium Level 9.0 mg/dL (8.5-10.1) Troponin I Quantitative < 0.017 ng/mL (0.000-0.055) Laboratory Tests 08/19/20 13:55 08/20/20 04:16 Laboratory Tests 08/19/20 13:55 08/20/20 04:16 ASSESSMENT/PLAN ASSESSMENT/PLAN 1. Atypical chest pain: possibly MSK 2. HTN: controlled 3. HLP 4. GERD 5. BRYANNA: CPAP compliance 6. Morbid obesity Recommendations 1. [place] ASA statin and BP regimen 2. Continue with home CPAP 3. TTE and lipids. If echo is unremarkable then will arrange to MPI next week given her significnat cardiac risk factors. AMISHA NJ MD 08/20/20 1601: CARDIAC CONSULT ASSESSMENT/PLAN ASSESSMENT/PLAN Patient seen and examined She reports no chest pain this morning. I agree with our nurse practitioner assessment as above. Chest pain, atypical. Normal troponins. No further pain. We will continue on aspirin as noted above. Echocardiogram shows normal LV systolic function with no regional wall motion abnormalities. Will increase activity. MPI testing next week. Controlled hypertension. Continue present medications. Hyperlipidemia. Continue statins. Gastroesophageal reflux disease. Continue baseline medications. Obstructive sleep apnea on CPAP. Obesity. JOAQUIN GILL APRN Aug 20, 2020 10:54 AMISHA NJ MD Aug 20, 2020 16:01
[2020-08-20 11:00] VITALS: BP 123/72
[2020-08-20 11:03] LABS: CHOLESTEROL/HDL RATIO 2.7
[2020-08-20] MEDS ORDERED: NITR0.4T24 SL (11:04)
--- NOTE | 2020-08-20 11:08 | NUR ---
SS following for discharge planning. SS reviewed pt chart and discussed with pt RN. Pt is from home and is currently on room air. Probable discharge to home today per RN. SS will continue to follow for discharge planning.
--- NOTE | 2020-08-20 13:40 | CARD ---
MR#: [id number] Date of Study: 08/20/2020 Ordering Physician: JOAQUIN GILL, Referring Physician: JOAQUIN GILL, Tech: Maia Alaniz APPROVED REPORT EXAM: Two-dimensional and M-mode echocardiogram with Doppler and color Doppler. Other Information Quality : AverageHR: 72bpm INDICATION Chest Pain 2D DIMENSIONS RVDd3.2 (2.9-3.5cm)Left Atrium(2D)3.9 (1.6-4.0cm) IVSd1.0 (0.7-1.1cm)Aortic Root(2D)2.8 (2.0-3.7cm) LVDd5.6 (3.9-5.9cm)LVOT Diameter2.0 (1.8-2.4cm) PWd1.2 (0.7-1.1cm)LVDs3.2 (2.5-4.0cm) FS (%) 43.6 %SV114.7 ml LVEF(%)74.2 (>50%) Aortic Valve AoV Peak Balaji.165.8cm/sAoV VTI37.0cm AO Peak GR.11.0mmHgLVOT Peak Balaji.135.6cm/s LVOT VTI 27.64cmAO Mean GR.6mmHg SUSAN (VMAX)1.72fb1RVY (VTI)2.28cm2 Mitral Valve MV E Eebiohzn826.2cm/sMV DECEL [id number] MV A Gnnfthpm39.8cm/sMV HLY40ra E/A Ratio1.2MVA (PHT)3.05cm2 TDI E/Lateral E'11.7E/Medial E'6.7 Pulmonary Valve PV Peak Prjadexk327.1cm/sPV Peak Grad.4mmHg Tricuspid Valve TR P. Rexxbhvr301rc/sRAP [id number] TR Peak Gr.95moVcDSCT00mfKh Pulmonary Vein S1 Ilvcqqcn53.9cm/sD2 Eeltprnh00.1cm/s LEFT VENTRICLE The left ventricle is normal size. There is mild concentric left ventricular hypertrophy. The left ve ntricular systolic function is normal. The Ejection Fraction is 55-60%. There is normal LV segmental wall motion. RIGHT VENTRICLE The right ventricle is normal size. There is normal right ventricular wall thickness. The right ventr icular systolic function is normal. ATRIA The left atrium size is normal. The right atrium is borderline dilated. The interatrial septum is int act with no evidence for an atrial septal defect or patent foramen ovale as noted on 2-D or Doppler i maging. AORTIC VALVE The aortic valve is not well visualized. Doppler and Color Flow revealed no significant aortic regurg itation. There is no significant aortic valvular stenosis. Calculated aortic valve area is 2.0 cm2 wi th maximum pressure gradient of 12 mmHg and mean pressure gradient of 6 mmHg. MITRAL VALVE The mitral valve is normal in structure and function. There is no evidence of mitral valve prolapse. There is no mitral valve stenosis. Doppler and Color Flow revealed no mitral valve regurgitation note d. TRICUSPID VALVE The tricuspid valve is not well visualized. Doppler and Color Flow revealed trace tricuspid regurgita tion with an estimated PAP of 16 mmHg. There is no tricuspid valve stenosis. PULMONIC VALVE The pulmonic valve is not well visualized. Doppler and Color Flow revealed trace pulmonic valvular re gurgitation. GREAT VESSELS The aortic root is normal in size. The IVC is normal in size and collapses >50% with inspiration. PERICARDIAL EFFUSION There is no evidence of significant pericardial effusion. Critical Notification Critical Value: No <Conclusion> The left ventricular systolic function is normal. The Ejection Fraction is 55-60%. There is normal LV segmental wall motion. Trace tricuspid regurgitation with an estimated PAP of 16 mmHg. There is no evidence of significant pericardial effusion. Signed by : Jhoan Adamson, Electronically Approved : 08/20/2020 13:39:58
--- NOTE | 2020-08-20 13:53 | PDOC3 ---
Discharge Summary Visit Information Date of Admission: Aug 19, 2020 Date of Discharge: Aug 20, 2020 Admitting Diagnosis: Chest pain Final Diagnosis Problems Medical Problems: (1) Chest pain Status: Acute Brief Hospital Course Allergies Allergies Coded Allergies Type Severity Reaction Last Updated Verified No Known Drug Allergies 08/19/20 No Vital Signs Vital Signs Date Time Temp Pulse Resp B/P (MAP) Pulse Ox O2 Delivery O2 Flow Rate FiO2 08/20/20 11:00 98.0 76 19 123/72 (89) 98 Room Air 98.0 Lab Results Laboratory Tests Test 08/19/20 13:55 08/19/20 16:20 08/19/20 16:26 08/19/20 19:55 White Blood Count 10.2 x10^3/uL (4.0-11.0) Red Blood Count 4.47 x10^6/uL (3.50-5.40) Hemoglobin 11.8 g/dL (12.0-15.5) Hematocrit 35.6 % (36.0-47.0) Mean Corpuscular Volume 80 fL (79-100) Mean Corpuscular Hemoglobin 26 pg (25-35) Mean Corpuscular Hemoglobin Concent 33 g/dL (31-37) Red Cell Distribution Width 18.6 % (11.5-14.5) Platelet Count 217 x10^3/uL (140-400) Neutrophils (%) (Auto) 65 % (31-73) Lymphocytes (%) (Auto) 27 % (24-48) Monocytes (%) (Auto) 5 % (0-9) Eosinophils (%) (Auto) 2 % (0-3) Basophils (%) (Auto) 1 % (0-3) Neutrophils # (Auto) 6.6 x10^3/uL (1.8-7.7) Lymphocytes # (Auto) 2.8 x10^3/uL (1.0-4.8) Monocytes # (Auto) 0.5 x10^3/uL (0.0-1.1) Eosinophils # (Auto) 0.2 x10^3/uL (0.0-0.7) Basophils # (Auto) 0.1 x10^3/uL (0.0-0.2) Sodium Level 143 mmol/L (136-145) Potassium Level 3.6 mmol/L (3.5-5.1) Chloride Level 106 mmol/L (98-107) Carbon Dioxide Level 27 mmol/L (21-32) Anion Gap 10 (6-14) Blood Urea Nitrogen 12 mg/dL (7-20) Creatinine 0.9 mg/dL (0.6-1.0) Estimated GFR (Cockcroft-Gault) 65.0 BUN/Creatinine Ratio 13 (6-20) Glucose Level 97 mg/dL (70-99) Calcium Level 9.5 mg/dL (8.5-10.1) Magnesium Level 1.7 mg/dL (1.8-2.4) Total Bilirubin 0.3 mg/dL (0.2-1.0) Aspartate Amino Transf (AST/SGOT) 11 U/L (15-37) Alanine Aminotransferase (ALT/SGPT) 23 U/L (14-59) Alkaline Phosphatase 105 U/L (46-116) Troponin I Quantitative < 0.017 ng/mL (0.000-0.055) < 0.017 ng/mL (0.000-0.055) < 0.017 ng/mL (0.000-0.055) UM-Qgd-O-Type Natriuretic Peptide 22 pg/mL (0-124) Total Protein 7.2 g/dL (6.4-8.2) Albumin 3.6 g/dL (3.4-5.0) Albumin/Globulin Ratio 1.0 (1.0-1.7) Lipase 101 U/L (73-393) Thyroid Stimulating Hormone (TSH) 1.616 uIU/mL (0.358-3.74) Urine Collection Type Unknown Urine Color Yellow Urine Clarity Clear Urine pH 6.0 (<5.0-8.0) Urine Specific [place] 1.020 (1.000-1.030) Urine Protein Negative mg/dL (NEG-TRACE) Urine Glucose (UA) Negative mg/dL (NEG) Urine Ketones (Stick) Negative mg/dL (NEG) Urine Blood Negative (NEG) Urine Nitrite Negative (NEG) Urine Bilirubin Negative (NEG) Urine Urobilinogen Dipstick 0.2 mg/dL (0.2 mg/dL) Urine Leukocyte Esterase Negative (NEG) Urine RBC 0 /HPF (0-2) Urine WBC Occ /HPF (0-4) Urine Squamous Epithelial Cells Many /LPF Urine Bacteria Many /HPF (0-FEW) Urine Mucus Mod /LPF Test 08/19/20 21:22 08/20/20 04:16 08/20/20 07:41 Glucose (Fingerstick) 113 mg/dL (70-99) 108 mg/dL (70-99) White Blood Count 9.6 x10^3/uL (4.0-11.0) Red Blood Count 4.34 x10^6/uL (3.50-5.40) Hemoglobin 11.2 g/dL (12.0-15.5) Hematocrit 34.8 % (36.0-47.0) Mean Corpuscular Volume 80 fL (79-100) Mean Corpuscular Hemoglobin 26 pg (25-35) Mean Corpuscular Hemoglobin Concent 32 g/dL (31-37) Red Cell Distribution Width 18.5 % (11.5-14.5) Platelet Count 225 x10^3/uL (140-400) Neutrophils (%) (Auto) 64 % (31-73) Lymphocytes (%) (Auto) 27 % (24-48) Monocytes (%) (Auto) 5 % (0-9) Eosinophils (%) (Auto) 3 % (0-3) Basophils (%) (Auto) 1 % (0-3) Neutrophils # (Auto) 6.2 x10^3/uL (1.8-7.7) Lymphocytes # (Auto) 2.6 x10^3/uL (1.0-4.8) Monocytes # (Auto) 0.5 x10^3/uL (0.0-1.1) Eosinophils # (Auto) 0.3 x10^3/uL (0.0-0.7) Basophils # (Auto) 0.1 x10^3/uL (0.0-0.2) Sodium Level 145 mmol/L (136-145) Potassium Level 4.1 mmol/L (3.5-5.1) Chloride Level 108 mmol/L (98-107) Carbon Dioxide Level 27 mmol/L (21-32) Anion Gap 10 (6-14) Blood Urea Nitrogen 12 mg/dL (7-20) Creatinine 0.9 mg/dL (0.6-1.0) Estimated GFR (Cockcroft-Gault) 65.0 Glucose Level 98 mg/dL (70-99) Calcium Level 9.0 mg/dL (8.5-10.1) Troponin I Quantitative < 0.017 ng/mL (0.000-0.055) Triglycerides Level 90 mg/dL (0-150) Cholesterol Level 118 mg/dL (0-200) LDL Cholesterol, Calculated 56 mg/dL (0-100) VLDL Cholesterol, Calculated 18 mg/dL (0-40) Non-HDL Cholesterol Calculated 74 mg/dL (0-129) HDL Cholesterol 44 mg/dL (40-60) Cholesterol/HDL Ratio 2.7 Laboratory Tests Test 08/19/20 13:55 08/19/20 16:20 08/19/20 16:26 08/19/20 19:55 White Blood Count 10.2 x10^3/uL (4.0-11.0) Red Blood Count 4.47 x10^6/uL (3.50-5.40) Hemoglobin 11.8 g/dL (12.0-15.5) Hematocrit 35.6 % (36.0-47.0) Mean Corpuscular Volume 80 fL (79-100) Mean Corpuscular Hemoglobin 26 pg (25-35) Mean Corpuscular Hemoglobin Concent 33 g/dL (31-37) Red Cell Distribution Width 18.6 % (11.5-14.5) Platelet Count 217 x10^3/uL (140-400) Neutrophils (%) (Auto) 65 % (31-73) Lymphocytes (%) (Auto) 27 % (24-48) Monocytes (%) (Auto) 5 % (0-9) Eosinophils (%) (Auto) 2 % (0-3) Basophils (%) (Auto) 1 % (0-3) Neutrophils # (Auto) 6.6 x10^3/uL (1.8-7.7) Lymphocytes # (Auto) 2.8 x10^3/uL (1.0-4.8) Monocytes # (Auto) 0.5 x10^3/uL (0.0-1.1) Eosinophils # (Auto) 0.2 x10^3/uL (0.0-0.7) Basophils # (Auto) 0.1 x10^3/uL (0.0-0.2) Sodium Level 143 mmol/L (136-145) Potassium Level 3.6 mmol/L (3.5-5.1) Chloride Level 106 mmol/L (98-107) Carbon Dioxide Level 27 mmol/L (21-32) Anion Gap 10 (6-14) Blood Urea Nitrogen 12 mg/dL (7-20) Creatinine 0.9 mg/dL (0.6-1.0) Estimated GFR (Cockcroft-Gault) 65.0 BUN/Creatinine Ratio 13 (6-20) Glucose Level 97 mg/dL (70-99) Calcium Level 9.5 mg/dL (8.5-10.1) Magnesium Level 1.7 mg/dL (1.8-2.4) Total Bilirubin 0.3 mg/dL (0.2-1.0) Aspartate Amino Transf (AST/SGOT) 11 U/L (15-37) Alanine Aminotransferase (ALT/SGPT) 23 U/L (14-59) Alkaline Phosphatase 105 U/L (46-116) Troponin I Quantitative < 0.017 ng/mL (0.000-0.055) < 0.017 ng/mL (0.000-0.055) < 0.017 ng/mL (0.000-0.055) VO-Cvz-W-Type Natriuretic Peptide 22 pg/mL (0-124) Total Protein 7.2 g/dL (6.4-8.2) Albumin 3.6 g/dL (3.4-5.0) Albumin/Globulin Ratio 1.0 (1.0-1.7) Lipase 101 U/L (73-393) Thyroid Stimulating Hormone (TSH) 1.616 uIU/mL (0.358-3.74) Urine Collection Type Unknown Urine Color Yellow Urine Clarity Clear Urine pH 6.0 (<5.0-8.0) Urine Specific [place] 1.020 (1.000-1.030) Urine Protein Negative mg/dL (NEG-TRACE) Urine Glucose (UA) Negative mg/dL (NEG) Urine Ketones (Stick) Negative mg/dL (NEG) Urine Blood Negative (NEG) Urine Nitrite Negative (NEG) Urine Bilirubin Negative (NEG) Urine Urobilinogen Dipstick 0.2 mg/dL (0.2 mg/dL) Urine Leukocyte Esterase Negative (NEG) Urine RBC 0 /HPF (0-2) Urine WBC Occ /HPF (0-4) Urine Squamous Epithelial Cells Many /LPF Urine Bacteria Many /HPF (0-FEW) Urine Mucus Mod /LPF Test 08/19/20 21:22 08/20/20 04:16 08/20/20 07:41 Glucose (Fingerstick) 113 mg/dL (70-99) 108 mg/dL (70-99) White Blood Count 9.6 x10^3/uL (4.0-11.0) Red Blood Count 4.34 x10^6/uL (3.50-5.40) Hemoglobin 11.2 g/dL (12.0-15.5) Hematocrit 34.8 % (36.0-47.0) Mean Corpuscular Volume 80 fL (79-100) Mean Corpuscular Hemoglobin 26 pg (25-35) Mean Corpuscular Hemoglobin Concent 32 g/dL (31-37) Red Cell Distribution Width 18.5 % (11.5-14.5) Platelet Count 225 x10^3/uL (140-400) Neutrophils (%) (Auto) 64 % (31-73) Lymphocytes (%) (Auto) 27 % (24-48) Monocytes (%) (Auto) 5 % (0-9) Eosinophils (%) (Auto) 3 % (0-3) Basophils (%) (Auto) 1 % (0-3) Neutrophils # (Auto) 6.2 x10^3/uL (1.8-7.7) Lymphocytes # (Auto) 2.6 x10^3/uL (1.0-4.8) Monocytes # (Auto) 0.5 x10^3/uL (0.0-1.1) Eosinophils # (Auto) 0.3 x10^3/uL (0.0-0.7) Basophils # (Auto) 0.1 x10^3/uL (0.0-0.2) Sodium Level 145 mmol/L (136-145) Potassium Level 4.1 mmol/L (3.5-5.1) Chloride Level 108 mmol/L (98-107) Carbon Dioxide Level 27 mmol/L (21-32) Anion Gap 10 (6-14) Blood Urea Nitrogen 12 mg/dL (7-20) Creatinine 0.9 mg/dL (0.6-1.0) Estimated GFR (Cockcroft-Gault) 65.0 Glucose Level 98 mg/dL (70-99) Calcium Level 9.0 mg/dL (8.5-10.1) Troponin I Quantitative < 0.017 ng/mL (0.000-0.055) Triglycerides Level 90 mg/dL (0-150) Cholesterol Level 118 mg/dL (0-200) LDL Cholesterol, Calculated 56 mg/dL (0-100) VLDL Cholesterol, Calculated 18 mg/dL (0-40) Non-HDL Cholesterol Calculated 74 mg/dL (0-129) HDL Cholesterol 44 mg/dL (40-60) Cholesterol/HDL Ratio 2.7 Brief Hospital Course Ms Mathew is a 55 year old female w/ PMHx HTN, DM2 who was brought here by EMS from home due to substernal chest pain that did not radiate. Was sharp, associated with shortness of breath, lasted more than 15 minutes. 02/05. EMS gave her nitroglycerin 2 doses and aspirin on route, patient feel much better upon arrival to ER. Initially this pain started on Sunday then went away with associated SOB, chest pain returned today. Patient went to have Covid test on 08/16/20 and received negative results 08/18/20. Patient had no history of coronary artery disease or blood clot disorder. Patient denies any recent travel or operation. Patient is not sure if she been exposed to anybody who tested positive for COVID-19. 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 She has never smoked. EKG was done at 1348, heart rate of 67 bpm, sinus rhythm, no ST segment elevation. Chest radiograph with no acute abnormalities. Labs with WBC 10.2, Hb 11.8, platelets 207, NA 143, K3.6, BUN 12, CR 0.9, glucose 97, magnesium 1.7, troponin 0 Admitted for further overnight observation. Chest pain resolved. Telemetry reviewed no events overnight. Labs stable no troponin elevation. Plan for echocardiogram and discharge home today with outpatient stress testing with cardiology follow-up. She has plans for gastric bypass in the next 90 days and has follow-up at [facility] for this and will follow up with GI. Echocardiogram: The left ventricular systolic function is normal. The Ejection Fraction is 55-60%. There is normal LV segmental wall motion. Trace tricuspid regurgitation with an estimated PAP of 16 mmHg. There is no evidence of significant pericardial effusion. Consults: Cardiology Problem list: Chest pain - likely GERD. Shortness of breath likely related to LPRD. Troponin EKG and chest x-ray negative as well as echo. Has outpatient stress testing to plan with cardiology. DM2 - sliding scale Morbid obesity - counseled on diet, exercise, weight loss. Has lost almost 50# and has outpatient weight loss surgery planned with [facility]. HTN - cont home meds Hypokalemia and hypomagnesmia - replaced BRYANNA on CPAP Greater than 30 minutes spent on d/c home Discharge Information Condition at Discharge: Improved Follow Up: Weeks (1) Disposition/Orders: D/C to Home Scheduled Amlodipine Besylate (Amlodipine Besylate) 10 Mg Tablet, 10 MG PO DAILY for htn, (Reported) Entered as Reported by: HUNTER MCKEON on 08/19/201851 Last Taken: Unknown Dose on Unknown Date & Time Last Action: Continued on 08/19/201854 by STEPHANIE MONTANEZ MD Aspirin (Aspirin) 81 Mg Tab.chew, 1 TAB PO DAILY for heart health , #30 Ref 3 (Reported) Entered as Reported by: HUNTER MCKEON on 08/19/201851 Last Taken: Unknown Dose on Unknown Date & Time Last Action: Continued on 08/19/201854 by STEPHANIE MONTANEZ MD Atorvastatin Calcium (Atorvastatin Calcium) 20 Mg Tablet, 1 TAB PO DAILY for high cholestrol , #30 Ref 5 (Reported) Entered as Reported by: HUNTER MCKEON on 08/19/201851 Last Taken: Unknown Dose on Unknown Date & Time Last Action: Continued on 08/19/201854 by STEPHANIE MONTANEZ MD Famotidine (Famotidine) 20 Mg Tablet, 20 MG PO HS for GERD, (Reported) Entered as Reported by: HUNTER MCKEON on 08/19/201851 Last Taken: Unknown Dose on Unknown Date & Time Last Action: New Order on 08/19/201851 by HUNTER MCKEON Lisinopril (Lisinopril) 10 Mg Tablet, 1 TAB PO DAILY for HTN, #30 Ref 5 (Reported) Entered as Reported by: HUNTER MCKEON on 08/19/201851 Last Taken: Unknown Dose on Unknown Date & Time Last Action: Continued on 08/19/201854 by STEPHANIE MONTANEZ MD Loperamide Hcl (Loperamide) 2 Mg Tablet, 2 TAB PO DAILY for loose stool for 30 Days, #60 Ref 0 (Reported) Entered as Reported by: HUNTER MCKEON on 08/19/201851 Last Taken: Unknown Dose on Unknown Date & Time Last Action: New Order on 08/19/201851 by HUNTER MCKEON Loperamide Hcl (Loperamide) 2 Mg Tablet, 1 TAB PO QHS for loose stool for 30 Days, #30 Ref 0 (Reported) Entered as Reported by: HUNTER MCKEON on 08/19/201851 Last Taken: Unknown Dose on Unknown Date & Time Last Action: New Order on 08/19/201851 by HUNTER MCKEON Metformin Hcl (Metformin Hcl) 500 Mg Tablet, 500 MG PO BIDWMEALS for ANTI- DIABETIC, Ref 0 (Reported) Entered as Reported by: HUNTER MCKEON on 08/19/201851 Last Taken: Unknown Dose on Unknown Date & Time Last Action: New Order on 08/19/201851 by HUNTER MCKEON Mirabegron (Myrbetriq) 50 Mg Tab.er.24h, 50 MG PO DAILY for f, (Reported) Entered as Reported by: HUNTER MCKEON on 08/19/201851 Last Taken: Unknown Dose on Unknown Date & Time Last Action: Converted on 08/19/201854 by STEPHANIE MONTANEZ MD Trazodone Hcl (Trazodone Hcl) 50 Mg Tablet, 1 TAB PO QHS for insomnia, #30 Ref 1 (Reported) Entered as Reported by: HUNTER MCKEON on 08/19/201851 Last Taken: Unknown Dose on Unknown Date & Time Last Action: Continued on 08/19/201854 by STEPHANIE MONTANEZ MD Scheduled PRN Nitroglycerin (Nitrostat) 0.4 Mg Tab.subl, 0.4 MG SL PRN Q5MIN PRN for CHEST PAIN for 30 Days, #9 Ref 2 Prescribed by: STEPHANIE MONTANEZ MD on 08/20/20 1104 Discontinued Medications Diclofenac Sodium (Diclofenac Sodium) 75 Mg Tablet.dr, 1 TAB PO BID for pain, #60 Ref 1 (Reported) Entered as Reported by: HUNTER MCKEON on 08/19/201851 Last Taken: Unknown Dose on Unknown Date & Time Last Action: New Order on 08/19/201851 by HUNTER Articifation of Admission Dx: Justifications for Admission: Justification of Admission Dx: N/A STEPHANIE MONTANEZ MD Aug 20, 2020 13:53
[2020-08-20 15:00] VITALS: BP 146/81
--- NOTE | 2020-08-20 16:42 | NUR ---
Discharge Note: SUYAPA TOMAS Discharge instructions and discharge home medications reviewed with Patient and a copy given. All questions have been answered and understanding verbalized. Cardiology office to call patient for outpatient MPI.
[2020-08-20] MEDS ORDERED: ATORVASTATIN CALCIUM 20 MG TABLET PO SCH (21:00)
== END 2020-08-20 17:22 | disposition home or self-care (01) ==
LOC: ER 13:41 → 2 NORTH 16:00
PROVIDERS: ADMIT Internal Medicine; ATTEND Internal Medicine
DX: R07.89 Other chest pain (principal); I10 Essential (primary) hypertension; E11.9 Type 2 diabetes mellitus without complications; E66.01 Morbid (severe) obesity due to excess calories; E78.5 Hyperlipidemia, unspecified; E83.42 Hypomagnesemia; E87.6 Hypokalemia; K21.9 Gastro-esophageal reflux disease without esophagitis; G47.33 Obstructive sleep apnea (adult) (pediatric); M19.90 Unspecified osteoarthritis, unspecified site; M54.5 Low back pain; Z90.710 Acquired absence of both cervix and uterus; Z98.891 History of uterine scar from previous surgery; Z98.890 Other specified postprocedural states; Z79.82 Long term (current) use of aspirin; Z79.84 Long term (current) use of oral hypoglycemic drugs; Z68.43 Body mass index [BMI] 50.0-59.9, adult
CPT/HCPCS: 36415; 71045; 80048; 80053; 80061; 81001; 82962; 83690; 83735; 83880; 84443; 84484; 85025; 87086; 93005; 93306; 96365; 96366; 96372; 96375; 96376; 99285; G0378; J1650; J3475; J3490; G0379